=== PATIENT | female | born 1940 | race Caucasian/White ===

== ENCOUNTER 2018-03-08 07:36 | Inpatient (IN) | payer MEDICARE, OTHER ==
[~2018-03-08 07:36] MED LIST: BUPIVACAINE 0.5% (SDV) 30 ML, morphine SULFATE (PF) 8 MG, EPINEPHrine 0.3 MG, KETOROLAC... IRR
[2018-03-08] MEDS ORDERED: ROCURONIUM 50 MG INJ ×2 (08:16→08:18)
[2018-03-08] MEDS ORDERED: CEFAZOLIN 1 GM INJ (08:16)
[2018-03-08] MEDS ORDERED: PROPOFOL 20 ML (08:16)
[2018-03-08] MEDS ORDERED: morphine SULFATE/PF (10 MG/10 ML) INJ (08:17)
[2018-03-08] MEDS ORDERED: MIDAZOLAM 1 MG/ML 2 ML INJ (08:17)
[2018-03-08] MEDS ORDERED: ROPIVACAINE 0.5 % 30 ML VIAL (08:17)
[2018-03-08] MEDS ORDERED: BUPIVACAINE 0.75%/DEXT (SPINAL) 2 ML INJ (08:18)
[2018-03-08] MEDS ORDERED: PHENYLephrine (100 MCG/ML) 5ML SYG ×2 (08:21→10:52)
[2018-03-08] MEDS: DEXAMETHASONE 1 MG TAB PO (08:25)
[2018-03-08] MEDS: GABAPENTIN 300 MG CAP PO ×2 (08:25→20:37)
[2018-03-08] MEDS: traMADol 50 MG TAB PO (08:25)
[2018-03-08] MEDS: POLYMYXIN/BACITRACIN 1L IRRIG (10:34)
[2018-03-08] MEDS: THROMBIN 5000 UNIT VIAL (10:34)
[2018-03-08] MEDS: CA CHLORIDE 10% 10 ML SYRINGE (10:34)
[2018-03-08] MEDS ORDERED: METOCLOPRAMIDE 10 MG INJ (10:51)
[2018-03-08] MEDS ORDERED: ONDANSETRON 4 MG INJ (10:51)
[2018-03-08] MEDS ORDERED: DEXAMETHASONE 4 MG/ML 1 ML INJ (10:51)
[2018-03-08] MEDS ORDERED: ACETAMINOPHEN 1000MG/100ML IV 100 ML (10:51)
[2018-03-08] MEDS ORDERED: ALBUMIN HUMAN 5% 250 ML (11:09)
[2018-03-08] MEDS ORDERED: METOCLOPRAMIDE 10 MG INJ IV (11:30)
[2018-03-08] MEDS ORDERED: EPHEDrine SULFATE 50 MG/5 ML SYG IV (11:30)
[2018-03-08] MEDS ORDERED: HYDROCODONE/APAP (5/325) TAB PO (11:30)
[2018-03-08] MEDS ORDERED: NALBUPHINE HCL (10 MG/1 ML) INJ IV (11:30)
[2018-03-08] MEDS ORDERED: HYDROmorphONE 1 MG/5 ML IV SYRINGE IV ×3 (11:30)
[2018-03-08] MEDS ORDERED: HYDROmorphONE 0.5 MG/0.5 ML SYG IV ×2 (11:30)
[2018-03-08] MEDS ORDERED: NALOXONE (0.4 MG/ML) INJ IV (11:30)
[2018-03-08] MEDS ORDERED: ONDANSETRON 4 MG INJ IV ×2 (11:30)
[2018-03-08] MEDS ORDERED: LABETALOL HCL 20MG INJ IV (11:30)
[2018-03-08] MEDS ORDERED: ACETAMINOPHEN 500 MG TAB PO (11:30)
[2018-03-08] MEDS ORDERED: FENTAnyl 50 MCG/ML VIAL IV ×3 (11:30)
[2018-03-08] MEDS ORDERED: DIPHENHYDRAMINE 50 MG INJ IV ×2 (11:30)
[2018-03-08] MEDS ORDERED: OXYCODONE/ACETAMINOPHEN (5/325) TAB PO ×2 (11:30)
[2018-03-08] MEDS ORDERED: hydrALAzine 20 MG INJ IV (11:30)
[2018-03-08] MEDS ORDERED: ALBUMIN HUMAN 5% 250 ML IV (11:30)
[2018-03-08] MEDS ORDERED: morphine 2 MG INJ IV ×2 (11:30)
[2018-03-08] MEDS ORDERED: MEPERIDINE 25 MG INJ IV (11:30)
[2018-03-08] MEDS ORDERED: SUGAMMADEX SODIUM 200 MG/2 ML VIAL IV (11:40)
[2018-03-08] MEDS ORDERED: ZOLPIDEM 5 MG TAB PO (12:00)
[2018-03-08] MEDS ORDERED: MAGNESIUM HYDROXIDE 30ML CUP PO (12:00)
[2018-03-08 12:17] LABS: ADD MAN DIFF? NO
[2018-03-08 12:30] LABS: WHITE BLOOD COUNT 6.8 10^3/ul (4.8-10.8)
[2018-03-08 12:30] LABS: BASOPHILS % 0.3 % (0.0-2.0); EOSINOPHILS % 0.1 % (0.0-7.0); HEMATOCRIT 34.2 % (37.0-47.0); HEMOGLOBIN 10.8 g/dl (12.0-16.0); LYMPHOCYTES # 1.1 10^3/ul (0.8-2.9); LYMPHOCYTES % 16.6 % (15.0-51.0); MEAN CORPUSCULAR HEMOGLOBIN 29.4 pg (29.0-33.0); MEAN CORPUSCULAR HGB CONC 31.6 g/dl (32.0-37.0); MEAN CORPUSCULAR VOLUME 93.2 fl (82.0-101.0); MEAN PLATELET VOLUME 9.9 fl (7.4-10.4); MONOCYTE # 0.2 10^3/ul (0.3-0.9); MONOCYTES % 2.7 % (0.0-11.0); NEUTROPHIL # 5.4 10^3/ul (1.6-7.5); NEUTROPHILS % 79.4 % (39.0-77.0); PLATELET COUNT 167 10^3/UL (140-415); RED BLOOD COUNT 3.67 10^6/ul (4.20-5.40); RED CELL DISTRIBUTION WIDTH 13.4 % (11.5-14.5)
[2018-03-08] MEDS: CEFAZOLIN 1 GM/50 ML (PMX) 50 ML IVPB ×2 (13:08→20:37)
[2018-03-08] MEDS: LACTATED RINGER'S 1,000 ML IV (14:40)
[2018-03-08] MEDS: DEXAMETHASONE 2 MG TAB PO (18:33)
[2018-03-08] MEDS: TRANEXAMIC ACID 1,000 MG in DEXTROSE 5% 100 ML IVPB (19:46)
[2018-03-08] MEDS: CEFAZOLIN 2 GM/50 ML (PMX) 50 ML IVPB (19:46)
[2018-03-08] MEDS: LACTATED RINGER'S 1,000 ML IV* (19:47)
[2018-03-08] MEDS: SOD CHLORIDE 0.9% 100 ML, TRANEXAMIC ACID 3,000 MG IRR (19:47)
[2018-03-08] MEDS: TRANEXAMIC ACID 1,000 MG in DEXTROSE 5% 100 ML IV (19:48)
[2018-03-08] MEDS: SENNA/DOCUSATE NA (8.6MG/50MG) TAB PO (20:37)
[2018-03-09] MEDS: DEXAMETHASONE 2 MG TAB PO ×3 (00:44→12:52)
[2018-03-09] MEDS: LACTATED RINGER'S 1,000 ML IV (00:44)
[2018-03-09 05:06] LABS: ADD MAN DIFF? NO
[2018-03-09 05:07] LABS: WHITE BLOOD COUNT 10.6 10^3/ul (4.8-10.8)
[2018-03-09 05:07] LABS: ABNORMAL IP MESSAGE 1; BASOPHILS % 0.1 % (0.0-2.0); HEMATOCRIT 34.1 % (37.0-47.0); HEMOGLOBIN 10.8 g/dl (12.0-16.0); LYMPHOCYTES # 0.5 10^3/ul (0.8-2.9); LYMPHOCYTES % 4.9 % (15.0-51.0); MEAN CORPUSCULAR HEMOGLOBIN 29.5 pg (29.0-33.0); MEAN CORPUSCULAR HGB CONC 31.7 g/dl (32.0-37.0); MEAN CORPUSCULAR VOLUME 93.2 fl (82.0-101.0); MEAN PLATELET VOLUME 10.1 fl (7.4-10.4); MONOCYTE # 0.4 10^3/ul (0.3-0.9); MONOCYTES % 4.2 % (0.0-11.0); NEUTROPHIL # 9.6 10^3/ul (1.6-7.5); NEUTROPHILS % 90.4 % (39.0-77.0); PLATELET COUNT 141 10^3/UL (140-415); RED BLOOD COUNT 3.66 10^6/ul (4.20-5.40); RED CELL DISTRIBUTION WIDTH 13.1 % (11.5-14.5)
[2018-03-09 05:14] LABS: POSITIVE DIFF @See below
[2018-03-09] MEDS: CEFAZOLIN 1 GM/50 ML (PMX) 50 ML IVPB ×2 (05:42→12:53)
[2018-03-09] MEDS: SENNA/DOCUSATE NA (8.6MG/50MG) TAB PO ×2 (08:42→20:46)
[2018-03-09] MEDS: ASPIRIN 81 MG TAB PO (08:42)
[2018-03-09] MEDS ORDERED: DIPHENHYDRAMINE 50 MG INJ IV (10:00)
[2018-03-09] MEDS ORDERED: OXYCODONE/ACETAMINOPHEN (5/325) TAB PO ×2 (10:00)
[2018-03-09] MEDS ORDERED: morphine 2 MG INJ IV (10:00)
[2018-03-09] MEDS ORDERED: ONDANSETRON 4 MG INJ IV (10:00)
[2018-03-09] MEDS ORDERED: ACETAMINOPHEN 500 MG TAB PO (10:00)
[2018-03-09] MEDS: GABAPENTIN 300 MG CAP PO (20:46)
[2018-03-09] MEDS: KETOROLAC 15 MG INJ IV (20:46)
[2018-03-10 05:26] LABS: ADD MAN DIFF? NO
[2018-03-10 05:36] LABS: WHITE BLOOD COUNT 12.8 10^3/ul (4.8-10.8)
[2018-03-10 05:36] LABS: BASOPHILS % 0.1 % (0.0-2.0); HEMATOCRIT 33.4 % (37.0-47.0); HEMOGLOBIN 10.7 g/dl (12.0-16.0); LYMPHOCYTES # 1.9 10^3/ul (0.8-2.9); LYMPHOCYTES % 14.4 % (15.0-51.0); MEAN CORPUSCULAR HEMOGLOBIN 29.5 pg (29.0-33.0); MEAN PLATELET VOLUME 10.9 fl (7.4-10.4); MONOCYTE # 0.7 10^3/ul (0.3-0.9); MONOCYTES % 5.5 % (0.0-11.0); NEUTROPHIL # 10.2 10^3/ul (1.6-7.5); NEUTROPHILS % 79.6 % (39.0-77.0); PLATELET COUNT 181 10^3/UL (140-415); RED BLOOD COUNT 3.63 10^6/ul (4.20-5.40); RED CELL DISTRIBUTION WIDTH 13.6 % (11.5-14.5)
[2018-03-10] MEDS: morphine 2 MG INJ IV (08:23)
[2018-03-10] MEDS: SENNA/DOCUSATE NA (8.6MG/50MG) TAB PO (09:01)
[2018-03-10] MEDS: ASPIRIN 81 MG TAB PO (09:01)
== END 2018-03-10 15:40 | disposition home health service (06) | DRG 470 ==
LOC: REC 07:36 → MS1 13:55
PROVIDERS: Orthopaedic Surgery
PROC: 0SR904Z Replacement of Right Hip Joint with Ceramic on Polyethylene Synthetic Substitute, Open Approach (ICD-10-PCS; principal; 2018-03-08 10:00)
DX: M16.11 Unilateral primary osteoarthritis, right hip (principal); I10 Essential (primary) hypertension; E66.9 Obesity, unspecified; Z68.29 Body mass index [BMI] 29.0-29.9, adult
CPT/HCPCS: 72170; 73530; 85025; 86999; 88304; 88311; 97110; 97116; 97162; 97530